=== PATIENT | male | born 1965 | race Caucasian/White ===

== ENCOUNTER 2022-10-24 16:50 | Emergency (ER) | payer BC, SELFPAY ==
--- NOTE | ~2022-10-24 | XR_ITS ---
EXAM: XR shoulder LT min 2V DATE: 10/24/2022 17:23 HISTORY: left shoulder pain/NO TRAUMA/PT WOULD NOT HOLD STILL . COMPARISON: None available. FINDINGS: Normal mineralization. No fracture or dislocation. No lytic or blastic lesion. Moderate de generative change in the AC joint. Moderate osteophytosis and mild joint space narrowing/sclerosis in the glenohumeral joint. 1.5 cm ossified loose body in the inferior recess of the left shoulder joint . No erosion or periosteal change. Soft tissues within normal limits. IMPRESSION: Moderate left glenohumeral osteoarthritis with a large loose body. No acute osseous findi ng in the left shoulder. Reviewed, dictated and finalized at location [facility] IMPRESSION: Moderate left glenohumeral osteoarthritis with a large loose body. No acute osseous finding in the left shoulder.
[2022-10-24 17:05] VITALS: BP 152/105; PULSE 95; RESP 14; TEMP 36.2; O2SAT 100
--- NOTE | 2022-10-24 17:11 | ED.GENADULT ---
HPI - General Adult General Chief complaint: Extremity Problem,Nontraumatic Stated complaint: left shoulder pain Time Seen by Provider: 10/24/22 17:08 History of Present Illness HPI narrative: Yony is a 56M that presented to the ER with left shoulder pain. It woke him up from sleep last night and has become worse throughout the day. He can hardly move it. He denies any fall or injury. Related Data Allergies Allergy/AdvReac Type Severity Reaction Status Date / Time aspirin Allergy Intermediate HIVES Verified 07/19/13 10:36 Review of Systems Review of Systems: All systems reviewed & are unremarkable except as noted in HPI and below Exam Const: General: healthy appearing and no acute distress Nutritional Appearance: well nourished HENMT: Head: normal to inspection Ears: external ears normal Eyes: Conjunctivae: conjunctivae normal Neck: Neck: normal visual inspection Chest: Chest palpation & inspection: normal inspection of the chest Resp: Effort & Inspection: normal respiratory effort Cardio: Rate: regular rate Skin: General skin exam: normal color Neuro: General: patient oriented x3 Cranial nerves: Yes Nystagmus not present Extrem: Other: Left shoulder appeared to sit lower than the right. He was holding the arm the whole time and could not move it due to pain and he could not tolerate any special testing. Psych: Mental Status: mental status grossly normal Course Course Emergency Course: EXAM:? XR shoulder LT min 2V DATE: 10/24/2022 17:23 HISTORY: left shoulder pain/NO TRAUMA/PT WOULD NOT HOLD STILL . COMPARISON:? None available. FINDINGS:? Normal mineralization. No fracture or dislocation. No lytic or blastic lesion. Moderate degenerative change in the AC joint. Moderate osteophytosis and mild joint space narrowing/sclerosis in the glenohumeral joint. 1.5 cm ossified loose body in the inferior recess of the left shoulder joint. No erosion or periosteal change. Soft tissues within normal limits. IMPRESSION: Moderate left glenohumeral osteoarthritis with a large loose body. No acute osseous finding in the left shoulder. I spoke with Dr. Walker who recommended making an appt outpatient. Vital Signs Vital signs: Vital Signs Temperature 97.2 F L 10/24/22 17:05 Pulse Rate 95 10/24/22 17:05 Respiratory Rate 14 10/24/22 17:05 Blood Pressure 152/105 H 10/24/22 17:05 Pulse Oximetry 100 10/24/22 17:05 Oxygen Delivery Room Air 10/24/22 17:05 Temperature 97.2 F L 10/24/22 17:05 Pulse Rate 95 10/24/22 17:05 Respiratory Rate 14 10/24/22 17:05 Blood Pressure 152/105 H 10/24/22 17:05 Pulse Oximetry 100 10/24/22 17:05 Oxygen Delivery Room Air 10/24/22 17:05 Medical Decision Making Vital Signs Vital Signs: Vital Signs Temperature 97.2 F L 10/24/22 17:05 Pulse Rate 95 10/24/22 17:05 Respiratory Rate 14 10/24/22 17:05 Blood Pressure 152/105 H 10/24/22 17:05 Pulse Oximetry 100 10/24/22 17:05 Oxygen Delivery Room Air 10/24/22 17:05 Temperature 97.2 F L 10/24/22 17:05 Pulse Rate 95 10/24/22 17:05 Respiratory Rate 14 10/24/22 17:05 Blood Pressure 152/105 H 10/24/22 17:05 Pulse Oximetry 100 10/24/22 17:05 Oxygen Delivery Room Air 10/24/22 17:05 Discharge Plan Discharge Clinical Impression: Loose body in joint of left shoulder region Patient Disposition: Home, Self-Care Condition: Stable Instructions: How to Use a Sling (ED) Additional Instructions: Please make and appointment with Dr. Gaytan at [phone] for further care. Prescriptions: New hydrocodone-acetaminophen 5-325 mg tablet 1 tablet PO Q8H PRN (Reason: pain) Qty: 5 0RF Follow-up/Referrals: UNKNOWN,DOCTOR [Primary Care Provider] -
[2022-10-24] MEDS: MORPHINE SULFATE (*CRX) 4 MG/ML INJ IM (17:16)
[2022-10-24 18:06] VITALS: BP 150/87; PULSE 87; RESP 20; TEMP 36.6; O2SAT 97
== END 2022-10-24 18:09 | disposition home or self-care (01) ==
PROVIDERS: Emergency Provider Family Medicine
DX: M24.012 Loose body in left shoulder (principal)
CPT/HCPCS: 73030; 96372; 99283; A4565; J2270